=== PATIENT | female | born 1950 | race Caucasian/White ===

== ENCOUNTER → 2017-11-29 13:19 | Outpatient (POV) | payer SELFPAY | PROVIDERS: Visit Provider Neurological Surgery | DX: Z00.00 Encounter for general adult medical examination without abnormal findings (principal) ==

== ENCOUNTER → 2017-12-27 14:10 | Outpatient (POV) | payer SELFPAY | PROVIDERS: Visit Provider Neurological Surgery | DX: Z00.00 Encounter for general adult medical examination without abnormal findings (principal) ==